=== PATIENT | female | born 1935 | race Caucasian/White ===

== ENCOUNTER → 2020-03-09 10:47 | Outpatient (BNVA) | payer MEDICARE, SELFPAY | PROVIDERS: Visit Provider Registered Nurse | DX: E03.9 Hypothyroidism, unspecified (principal) | CPT/HCPCS: 84443 ==

== ENCOUNTER → 2020-07-20 11:28 | Outpatient (BNVA) | payer MEDICARE, SELFPAY | PROVIDERS: Visit Provider Nurse Practitioner Family | DX: E03.9 Hypothyroidism, unspecified (principal); J02.9 Acute pharyngitis, unspecified | CPT/HCPCS: 87880 ==

== ENCOUNTER → 2021-03-10 11:27 | Outpatient (BNVA) | payer MEDICARE, SELFPAY | PROVIDERS: Visit Provider Registered Nurse | DX: E03.9 Hypothyroidism, unspecified (principal); R25.2 Cramp and spasm | CPT/HCPCS: 80053; 80061; 84443; 85025 ==

== ENCOUNTER 2021-06-10 07:36 | Outpatient (CLI) | payer MEDICARE, SELFPAY ==
--- NOTE | 2021-06-10 08:00 | USCV_ITS ---
Miriam Ling Age: 85 Gender: F : 1935 Exam Date: 06/10/2021 07:55 Ordering Phys: Leonel NinoP CARD GAME OPERATOR Technologist: Deja Campoverde Exam Location: [facility] – [place] Indication: Essential primary hypertension BP: 126 / 70 HR: 81 Rhythm: Sinus Technical Quality: Adequate MEASUREMENTS (Male / Female) Normal Values 2D ECHO LV Diastolic Diameter PLAX 4.2 cm 4.2 - 5.9 / 3.9 - 5.3 cm LV Systolic Diameter PLAX 2.8 cm IVS Diastolic Thickness 1.1 cm 0.6 - 1.0 / 0.6 - 0.9 cm IVS Systolic Thickness 1.7 cm LVPW Diastolic Thickness 1.2 cm 0.6 - 1.0 / 0.6 - 0.9 cm LVPW Systolic Thickness 1.7 cm RV Chamber Size 3.4 cm LVOT Diameter 2.0 cm LV Ejection Fraction 2D Teich 62.7 % LV Ejection Fraction MOD 2C 62.0 % LV Ejection Fraction 2C AL 63.9 % LA Diameter 3.0 cm LA Width 3.5 cm LA Height 3.9 cm RA Width 3.7 cm RA Height 4.1 cm Aorta at Sinotubular Diameter 2.3 cm M-MODE Aortic Annulus Diameter 2.5 cm LA Ao Ratio MM 1.2 DOPPLER AV Peak Velocity 157.0 cm/s LVOT Peak Velocity 97.0 cm/s AV Area Cont Eq vti 2.5 cm squared AV Area Cont Eq pk 2.0 cm squared MV Area PHT 5.0 cm squared Mitral E to A Ratio 1.3 MV E' Velocity 50.0 cm/s Mitral E to MV E' Ratio 9.3 Mitral E to LV E' Lateral Ratio 8.6 Mitral E to LV E' Septal Ratio 10.3 TR Peak Velocity 285.5 cm/s TR Peak Gradient 32.6 mmHg TV Peak E Velocity 52.0 cm/s Right Atrial Pressure 8.0 mmHg Pulmonary Artery Systolic Pressu 40.6 mmHg PV Peak Velocity 76.0 cm/s RV Acceleration Time 0.1 s RV Ejection Time 0.3 s RV AcT/ET 0.5 FINDINGS Left Ventricle Normal left ventricular size and systolic function, EF 62 %. Mild left ventricular hypertrophy. No regional wall motion abnormalities. Right Ventricle The right ventricle is normal in size and function. Right Atrium Mildly increased right atrial size. Left Atrium The left atrium is normal in size. Mitral Valve Trace mitral valve regurgitation. Aortic Valve Moderate aortic valve calcification. Tricuspid Valve Mild tricuspid valve regurgitation. Pulmonic Valve Pulmonic valve not well visualized. Pericardium Normal pericardium without effusion. Aorta Normal ascending aorta dimension. CONCLUSIONS Normal left ventricular size and systolic function, EF 62 %. Mild left ventricular hypertrophy. No regional wall motion abnormalities. Moderate aortic valve calcification. Trace mitral valve regurgitation. Mild tricuspid valve regurgitation. Estimated pulmonary artery peak systolic pressure was 41 mmHg There is no pericardial effusion. There are no intracardiac masses. No previous study is available for comparison. Dr Talisha Castillo MD [facility] (Electronically Signed) Final Date: 10 June 2021 11:49 S
== END 2021-06-10 07:37 | disposition home or self-care (01) ==
PROVIDERS: PCP Registered Nurse; Visit Provider Registered Nurse
DX: I10 Essential (primary) hypertension (principal); R53.83 Other fatigue; R55 Syncope and collapse; I08.3 Combined rheumatic disorders of mitral, aortic and tricuspid valves
CPT/HCPCS: 93306

== ENCOUNTER → 2021-09-15 10:49 | Outpatient (BNVA) | payer MEDICARE, SELFPAY | PROVIDERS: PCP Registered Nurse; Visit Provider Registered Nurse | DX: E03.9 Hypothyroidism, unspecified (principal); E53.8 Deficiency of other specified B group vitamins; I10 Essential (primary) hypertension | CPT/HCPCS: 82306; 82607; 84443; 85025 ==

== ENCOUNTER 2022-04-22 15:48 | Outpatient (CLI) | payer MEDICARE, SELFPAY ==
--- NOTE | 2022-04-22 15:45 | USCV_ITS ---
Miriam Ling Age: 86 Gender: F : 1935 Exam Date: 04/22/2022 16:14 Ordering Phys: Forest Phillips Technologist: Margareth Ambriz Exam Location: [facility] – [place] Indication: HISTORY: Varicose veins that seem to be getting worse PROCEDURES: Venous duplex imaging was performed in only the left lower extremity. The following venous structures were evaluated: common femoral vein he greater saphenous vein, superficial femoral vein, and the popliteal vein. In addition, the posterior tibial veins were evaluated. FINDINGS: Large grouping of Varicose veins drain into Lt GSV below knee. Another large grouping of veins seem to drain into the Lt. Pop vein The veins were found to be easily compressible with spontaneous blood flow. Non pulsatile flow pattern. CONCLUSIONS 1. No evidence of DVT in the above-mentioned identifiable veins, on the left side. 2. Significant venous reflux of greater than 500 ms (2780 msecs) was noted in the below-knee segment of the greater saphenous vein on the left side. The vein segment was 0.44 cm in diameter and at a depth of 1.55 cm from the surface. 3. Large varicose veins were found to be draining into the distal segment of the greater saphenous vein on the side. 4. Varicose veins were also found to be draining into the popliteal vein on this side. Dr Talisha Castillo MD [facility] (Electronically Signed) Final Date: 23 April 2022 12:05 S
== END 2022-04-22 15:49 | disposition home or self-care (01) ==
LOC: RAD 15:50
PROVIDERS: PCP Registered Nurse; Visit Provider Nurse Practitioner Family
DX: I83.92 Asymptomatic varicose veins of left lower extremity (principal); I83.892 Varicose veins of left lower extremity with other complications
CPT/HCPCS: 93971

== ENCOUNTER → 2022-05-19 13:11 | Outpatient (BNVA) | payer MEDICARE, SELFPAY | PROVIDERS: PCP Registered Nurse; Visit Provider Thoracic Surgery (Cardiothoracic Vascular Surgery) | DX: I83.90 Asymptomatic varicose veins of unspecified lower extremity (principal) | CPT/HCPCS: 99203 ==

== ENCOUNTER → 2022-10-25 11:10 | Outpatient (BNVA) | payer MEDICARE, SELFPAY | PROVIDERS: PCP Registered Nurse; Visit Provider Registered Nurse | DX: E03.9 Hypothyroidism, unspecified (principal); I10 Essential (primary) hypertension; M79.89 Other specified soft tissue disorders; R53.83 Other fatigue; E07.9 Disorder of thyroid, unspecified | CPT/HCPCS: 80053; 84443; 85025 ==

== ENCOUNTER → 2023-11-07 10:25 | Outpatient (BNVA) | payer MEDICARE, SELFPAY | PROVIDERS: PCP Registered Nurse; Visit Provider Registered Nurse | DX: E03.9 Hypothyroidism, unspecified (principal); E07.9 Disorder of thyroid, unspecified | CPT/HCPCS: 84443 ==